=== PATIENT | female | born 1990 | race Asian ===

== ENCOUNTER 2019-12-10 08:19 | Outpatient (CLI) | payer BC | END 2019-12-10 08:57 | disposition home or self-care (01) | LOC: FBPOP 08:19 | PROVIDERS: ATTEND Obstetrics & Gynecology | DX: O26.893 Other specified pregnancy related conditions, third trimester (principal) | CPT/HCPCS: 59025 ==

== ENCOUNTER 2019-12-15 08:49 | Outpatient (CLI) | payer BC ==
[2019-12-15 09:20] VITALS: BP 106/71; PULSE 90; RESP 16; TEMP 97.1
== END 2019-12-15 09:20 | disposition home or self-care (01) ==
LOC: FBPOP 08:49
PROVIDERS: ATTEND Obstetrics & Gynecology
DX: O36.5930 Maternal care for other known or suspected poor fetal growth, third trimester, not applicable or unspecified (principal); Z3A.37 37 weeks gestation of pregnancy
CPT/HCPCS: 59025

== ENCOUNTER → 2020-03-30 | Outpatient (CLI) | payer BC ==
--- NOTE | 2020-03-30 12:11 | XR ---
EXAMINATION TYPE: XR chest 2V DATE OF EXAM: 03/30/2020 COMPARISON: None HISTORY: 29-year-old female reaction to TB skin test. TECHNIQUE: Frontal and lateral views FINDINGS: The cardiomediastinal silhouette, aorta, and pulmonary vasculature are within normal limits. Lungs an d pleural spaces are clear. IMPRESSION: No acute cardiopulmonary process.
== END | disposition home or self-care (01) ==
LOC: RADXRMAIN 11:54
PROVIDERS: ATTEND Internal Medicine
DX: R76.11 Nonspecific reaction to tuberculin skin test without active tuberculosis (principal)
CPT/HCPCS: 71046